=== PATIENT | male | born 1960 | race Caucasian/White ===

== ENCOUNTER 2021-03-31 10:20 | Emergency (ER) | payer OTHER ==
[~2021-03-31] VITALS: Ht 185.4 cm; Wt 92.5 kg
[2021-03-31] MEDS ORDERED: SODIUM CHLORIDE FLUSH 10ML SYR IVF ONE (10:30)
[2021-03-31 11:31] LABS: ALANINE AMINOTRANSFERASE 27 U/L (12-78); ALBUMIN 3.7 g/dL (3.4-5.0); ANION GAP 7 mmol/L (5-15); CALCIUM 9.3 mg/dL (8.5-10.1); CHLORIDE 104 mmol/L (98-107); CREATININE 1.25 mg/dL (0.7-1.3)
[2021-03-31 11:34] LABS: ALKALINE PHOSPHATASE 74 U/L (45-117); BILIRUBIN,TOTAL 1.9 mg/dL (0.2-1.0)
[2021-03-31 11:37] LABS: BASOPHILS % (AUTO) 0 % (0-1); EOSINOPHILS % (AUTO) 1 % (1-7); LYMPHOCYTES % (AUTO) 15 % (22-44); MEAN CORPUSCULAR HEMOGLOBIN 31.5 pg (27.5-34.5); MEAN CORPUSCULAR HGB CONC 35.3 g/dL (33.2-36.2); MONOCYTES % (AUTO) 9 % (2-9); NEUTROPHILS % (AUTO) 75 % (42-75); PLATELET COUNT 195 x10^3/uL (130-400); RED BLOOD COUNT 5.34 x10^6/uL (4.38-5.82)
--- NOTE | 2021-03-31 13:21 | NUR ---
TO ROOM FROM LOBBY. NAD.
[2021-03-31] MEDS ORDERED: ONDANSETRON 2MG/ML, 2ML IVPush ONE (14:00)
[2021-03-31] MEDS ORDERED: MORPHINE SULFATE 4 MG/ML, 1ML IVPush ONE (14:00)
[2021-03-31] MEDS ORDERED: ONDANSETRON 2MG/ML, 2ML ONE (14:08)
[2021-03-31] MEDS ORDERED: MORPHINE SULFATE 4 MG/ML, 1ML ONE (14:09)
--- NOTE | 2021-03-31 14:12 | NUR ---
PT AT THIS TIME STATES PAIN IS TOLERABLE. PT EDUCATED TO ADVISE THIS RN IF PAIN CHANGES
[2021-03-31] MEDS ORDERED: OMNIPAQUE 350 MG/ML, 100ML BOTTLE ONE (15:17)
[2021-03-31 15:21] VITALS: BP 135/78
[2021-03-31 16:35] LABS: MICROSCOPIC NOT IND
== END 2021-03-31 17:09 | disposition home or self-care (01) ==
LOC: ED 10:30
DX: K57.32 Diverticulitis of large intestine without perforation or abscess without bleeding (principal); Z88.5 Allergy status to narcotic agent
CPT/HCPCS: 36415; 74177; 80053; 81003; 83690; 85025; 99285; Q9967